=== PATIENT | male | born 1990 | race Caucasian/White ===

== ENCOUNTER 2017-08-06 06:15 | Emergency (ER) | payer BC ==
[~2017-08-06] VITALS: Ht 177.8 cm; Wt 75.2 kg
[~2017-08-06 06:15] MED LIST: PERCOCET 5/31 TABLET PO
[2017-08-06] MEDS ORDERED: ULTRAM50 MG PO (07:58)
[2017-08-06 08:02] VITALS: BP 123/73
== END 2017-08-06 08:08 | disposition home or self-care (01) ==
LOC: EME 06:15
DX: S90.32XA Contusion of left foot, initial encounter (principal); W20.8XXA Other cause of strike by thrown, projected or falling object, initial encounter; Y93.22 Activity, ice hockey
CPT/HCPCS: 73630; 99281; 99284